=== PATIENT | female | born 1990 | race African-American/Black ===

== ENCOUNTER 2020-12-24 23:38 | Emergency (ER) | payer BC ==
[~2020-12-24] VITALS: Ht 160 cm; Wt 72.6 kg
[2020-12-24] MEDS ORDERED: BUSPAR10 MG ORAL (23:47)
[2020-12-24] MEDS ORDERED: CONCERTA18 MG PO (23:47)
--- NOTE | 2020-12-24 23:49 | NUR ---
ED Nurse Note: Pt to ED from home. Pt is A/O x 4. No SOB or acute distress. Pt complains of right side pain 7/10 x 1 week. Started after taking buspar. Vitals stable.
--- NOTE | 2020-12-24 23:59 | Emergency Room Report ---
History of Present Illness General Chief Complaint: Abdominal Pain Source: Patient Present Illness HPI Disclaimer: Please note that this report is being documented using [employer]posed [employer] technology. This can lead to erroneous entry secondary to incorrect interpretation by the dictating instrument. HPI: 30-year-old female presents for evaluation of abdominal pain. Intermittent epigastric and right upper quadrant pain for approximately 1 week. Sometimes the pain radiates to the right flank. Denies current pain. States it resolved prior to arrival. She reports abdominal bloating and increased gas. Denies diarrhea, melena, lower pelvic pain, dysuria, hematuria, vaginal bleeding. LMP 2 days ago. No prior history of abdominal surgery. History of alcohol abuse but no longer drinking. States the pain is sometimes worse with eating and with drinking coffee or eating acidic foods. Does not use an antacid. Has not seen a licensing and registration director. States she has a longstanding history of "stomach issues" but have not yet been worked up. Denies recent fever or chills. No other symptoms at this time. Recently increased dose of BuSpar but otherwise medications have been stable. PMH: Anxiety, former alcohol abuse, obesity PSH: Denied Allergies: Denied Social Hx: Former alcohol abuse, no longer drinking Allergies: Coded Allergies: No Known Allergies (Unverified , 12/24/20) COVID-19 Screening Contact w/high risk pt: No Experienced COVID-19 symptoms?: No COVID-19 Testing performed [employer]: Yes - 12/17/20 COVID-19 Screening: Negative COVID-19 COVID-19 Testing Source: clinic Patient History Last Menstrual Period: 12/11/20 Nursing Documentation-PMH Past Medical History: No History, Except For Review of Systems All Other Systems: negative except mentioned in HPI Physical Exam Vital Signs Date Time Temp Pulse Resp B/P (MAP) Pulse Ox O2 Delivery O2 Flow Rate FiO2 12/24/20 23:44 98.6 97 18 129/80 (96) 97 Room Air General: Awake and alert, no acute distress HEENT: NC/AT. EOMI. Cardiovascular: RRR. S1 and S2 normal. No murmur appreciated Resp: Normal work of breathing. No cough, wheezing or crackles appreciated Abdomen: Abdomen is soft, nondistended. Obese abdomen. Nontender. No masses. Cannot reproduce any tenderness in the epigastrium or right upper quadrant. Negative Machuca's. Belly exam is otherwise benign. No rebound. No guarding. Skin: Intact. No abrasions, laceration or rash over the exposed skin MSK: Normal tone and bulk. Moving all extremities. No obvious deformity. Neuro: Awake and alert. Mentating appropriately. Medical Decision Making Diagnostic Impression: Primary Impression: Abdominal pain ER Course 30-year-old female presents for evaluation of intermittent epigastric and right upper quadrant pain for the past week. Differential includes is not limited to gastritis, gastroenteritis, pancreatitis, cholecystitis, choledocholithiasis, GERD, esophagitis, ulcers, irritable bowel, nephrolithiasis among others. She is currently well-appearing arrives with stable vital signs. Cannot reproduce any tenderness on exam and her symptoms are now resolved. Labs including white count, LFTs, renal function and urinalysis returned within normal limits. hCG negative. Patient's belly exam remains benign. Had some improvement after receiving a GI cocktail. This may be biliary colic versus GERD/gastric ulcer. Do not believe she requires emergent imaging at this time. I have discussed referral to outpatient gastroenterology to perform further testing and work-up as needed. Patient will go through her PMD. Will start an antacid. We discussed strict return precautions. She understands and agrees with the treatment plan. Laboratory Tests Test 12/24/20 23:40 12/25/20 00:20 Urine Color Pale yellow Urine Appearance Clear Urine pH 7 (4.5-8.0) Urine Specific [place] 1.005 (1.005-1.035) Urine Protein Negative (NEGATIVE) Urine Glucose (UA) Negative (NEGATIVE) Urine Ketones Negative (NEGATIVE) Urine Blood Negative (NEGATIVE) Urine Nitrite Negative (NEGATIVE) Urine Bilirubin Negative (NEGATIVE) Urine Urobilinogen Normal MG/DL (0.0-1.0) Urine Leukocyte Esterase Negative (NEGATIVE) Urine HCG, Qualitative Negative (NEGATIVE) White Blood Count 6.9 K/UL (4.8-10.8) Red Blood Count 4.65 M/UL (4.20-5.40) Hemoglobin 13.4 G/DL (12.0-16.0) Hematocrit 42.2 % (37.0-47.0) Mean Corpuscular Volume 91 FL (80-99) Mean Corpuscular Hemoglobin 28.8 PG (27.0-31.0) Mean Corpuscular Hemoglobin Concent 31.7 G/DL (32.0-36.0) L Red Cell Distribution Width 12.5 % (11.6-14.8) Platelet Count 314 K/UL (150-450) Mean Platelet Volume 7.6 FL (6.5-10.1) Neutrophils (%) (Auto) 45.1 % (45.0-75.0) Lymphocytes (%) (Auto) 30.7 % (20.0-45.0) Monocytes (%) (Auto) 10.5 % (1.0-10.0) H Eosinophils (%) (Auto) 12.8 % (0.0-3.0) H Basophils (%) (Auto) 0.9 % (0.0-2.0) Sodium Level 131 MMOL/L (136-145) L Potassium Level 3.5 MMOL/L (3.5-5.1) Chloride Level 96 MMOL/L (98-107) L Carbon Dioxide Level 29 MMOL/L (21-32) Anion Gap 6 mmol/L (5-15) Blood Urea Nitrogen 7 mg/dL (7-18) Creatinine 1.1 MG/DL (0.55-1.30) Estimated Glomerular Filtration Rate > 60 mL/min (>60) Glucose Level 93 MG/DL (74-106) Calcium Level 9.3 MG/DL (8.5-10.1) Total Bilirubin 0.2 MG/DL (0.2-1.0) Aspartate Amino Transferase (AST) 25 U/L (15-37) Alanine Aminotransferase (ALT) 20 U/L (12-78) Alkaline Phosphatase 69 U/L (46-116) Total Protein 8.6 G/DL (6.4-8.2) H Albumin 3.7 G/DL (3.4-5.0) Globulin 4.9 g/dL Albumin/Globulin Ratio 0.8 (1.0-2.7) L Lipase 142 U/L (73-393) Last Vital Signs Date Time Temp Pulse Resp B/P (MAP) Pulse Ox O2 Delivery O2 Flow Rate FiO2 12/24/20 23:44 98.6 97 18 129/80 (96) 97 Room Air Disposition: HOME, SELF-CARE Condition: Stable Scripts Famotidine* (Pepcid 20mg tablet*) 20 Mg Tablet 20 MG ORAL DAILY for Gerd, #30 TAB 0 Refills Prov: Dong,Guru MD 12/25/20 Guru Umana MD Dec 24, 2020 23:59
[2020-12-25] MEDS ORDERED: Mylanta II UD 30ml ORAL ONE
[2020-12-25] MEDS ORDERED: Lidocaine 2% Visc 15ml soln ORAL ONE
[2020-12-25] MEDS ORDERED: Dicyclomine HCl 10mg/5ml oral soln ORAL ONE
[2020-12-25 00:03] VITALS: BP 104/68
[2020-12-25 00:41] LABS: BILIRUBIN, URINE NEGATIVE (NEGATIVE); COLOR,URINE PALE YELLOW; GLUCOSE, URINE (UA) NEGATIVE (NEGATIVE); KETONES,URINE NEGATIVE (NEGATIVE); LEUKOCYTE ESTERASE ,URINE NEGATIVE (NEGATIVE); NITRITE,URINE NEGATIVE (NEGATIVE); PH,URINE 7 (4.5-8.0); PROTEIN,URINE NEGATIVE (NEGATIVE); UROBILINOGEN,URINE NORMAL MG/DL (0.0-1.0)
[2020-12-25 00:43] LABS: BASOPHILS % (AUTO) 0.9 % (0.0-2.0); EOSINOPHILS % (AUTO) 12.8 % (0.0-3.0); HEMATOCRIT 42.2 % (37.0-47.0); HEMOGLOBIN 13.4 G/DL (12.0-16.0); LYMPHOCYTES % (AUTO) 30.7 % (20.0-45.0); MEAN CORPUSCULAR VOLUME 91 FL (80-99); MONOCYTES % (AUTO) 10.5 % (1.0-10.0); NEUTROPHILS % (AUTO) 45.1 % (45.0-75.0); PLATELET COUNT 314 K/UL (150-450); RED BLOOD COUNT 4.65 M/UL (4.20-5.40); RED CELL DISTRIBUTION WIDTH 12.5 % (11.6-14.8); WHITE BLOOD COUNT 6.9 K/UL (4.8-10.8)
[2020-12-25 00:43] LABS: APPEARANCE,URINE CLEAR
[2020-12-25 00:51] LABS: ANION GAP 6 mmol/L (5-15); BLOOD UREA NITROGEN 7 mg/dL (7-18); CALCIUM 9.3 MG/DL (8.5-10.1); CARBON DIOXIDE 29 MMOL/L (21-32); CHLORIDE 96 MMOL/L (98-107); CREATININE 1.1 MG/DL (0.55-1.30); POTASSIUM 3.5 MMOL/L (3.5-5.1); SODIUM 131 MMOL/L (136-145)
[2020-12-25 00:55] LABS: ALANINE AMINOTRANSFERASE 20 U/L (12-78); ALBUMIN 3.7 G/DL (3.4-5.0); ALBUMIN/GLOBULIN RATIO 0.8 (1.0-2.7); ALKALINE PHOSPHATASE 69 U/L (46-116); ASPARTATE AMINO TRANSFERASE 25 U/L (15-37); BILIRUBIN,TOTAL 0.2 MG/DL (0.2-1.0)
[2020-12-25] MEDS ORDERED: FAMOTIDINE20 MG ORAL ×3 (01:12→01:19)
--- NOTE | 2020-12-25 01:25 | NUR ---
ER DISCHARGE NOTE: Patient is cleared to be discharged per ERMD, pt is aox4, on room air, with stable vital signs. pt was given dc and prescription instructions, pt was able to verbalize understanding, pt id band and iv site removed without complications. pt is able to ambulate with steady gait. pt took all belongings.
[2020-12-25 01:27] VITALS: BP 115/72
== END 2020-12-25 01:25 | disposition home or self-care (01) ==
LOC: EMR 23:59
DX: R10.13 Epigastric pain (principal); R10.11 Right upper quadrant pain; R14.0 Abdominal distension (gaseous)
CPT/HCPCS: 36415; 80053; 81003; 81025; 83690; 85025; 96374; 99284; J2405